=== PATIENT | female | born 1960 | race Caucasian/White ===

== ENCOUNTER → 2017-03-16 | Outpatient (CLI) | payer BC | END | disposition home or self-care (01) | LOC: LAB EV 09:48 | DX: L03.119 Cellulitis of unspecified part of limb (principal) | CPT/HCPCS: 87070; 87075; 87205 ==

== ENCOUNTER 2017-03-19 00:56 | Day surgery (SDC) | payer BC | END 2017-03-19 22:47 | disposition home or self-care (01) | LOC: WOUND 00:56 | PROC: 0HBLXZZ Excision of Left Lower Leg Skin, External Approach (ICD-10-PCS; principal; 2017-03-19) | DX: Z48.00 Encounter for change or removal of nonsurgical wound dressing (principal); I87.2 Venous insufficiency (chronic) (peripheral); I83.009 Varicose veins of unspecified lower extremity with ulcer of unspecified site; M10.00 Idiopathic gout, unspecified site; E66.9 Obesity, unspecified | CPT/HCPCS: G0463 ==

== ENCOUNTER 2017-03-24 01:04 | Day surgery (SDC) | payer BC | END 2017-03-24 15:52 | disposition home or self-care (01) | LOC: WOUND 01:04 | PROC: 2W1RX6Z Compression of Left Lower Leg using Pressure Dressing (ICD-10-PCS; principal; 2017-03-24) | DX: Z48.00 Encounter for change or removal of nonsurgical wound dressing (principal); I87.2 Venous insufficiency (chronic) (peripheral); I83.009 Varicose veins of unspecified lower extremity with ulcer of unspecified site; M10.00 Idiopathic gout, unspecified site ==

== ENCOUNTER 2017-03-30 00:24 | Day surgery (SDC) | payer BC | END 2017-03-30 23:30 | disposition home or self-care (01) | LOC: WOUND 00:24 | PROC: 2W1RX6Z Compression of Left Lower Leg using Pressure Dressing (ICD-10-PCS; principal; 2017-03-30) | DX: Z48.00 Encounter for change or removal of nonsurgical wound dressing (principal); I87.2 Venous insufficiency (chronic) (peripheral); M10.00 Idiopathic gout, unspecified site; I83.028 Varicose veins of left lower extremity with ulcer other part of lower leg; L97.829 Non-pressure chronic ulcer of other part of left lower leg with unspecified severity | CPT/HCPCS: G0463 ==

== ENCOUNTER 2017-04-06 00:07 | Day surgery (SDC) | payer BC | END 2017-04-06 14:24 | disposition home or self-care (01) | LOC: WOUND 00:07 | PROC: 2W1RX6Z Compression of Left Lower Leg using Pressure Dressing (ICD-10-PCS; principal; 2017-04-06) | DX: Z48.00 Encounter for change or removal of nonsurgical wound dressing (principal); I87.2 Venous insufficiency (chronic) (peripheral); I83.009 Varicose veins of unspecified lower extremity with ulcer of unspecified site; M10.00 Idiopathic gout, unspecified site | CPT/HCPCS: G0463 ==

== ENCOUNTER 2017-04-13 00:16 | Day surgery (SDC) | payer BC | END 2017-04-13 10:32 | disposition home or self-care (01) | LOC: WOUND 00:16 | PROC: 2W1RX6Z Compression of Left Lower Leg using Pressure Dressing (ICD-10-PCS; principal; 2017-04-13) | PROC: 0HBLXZZ Excision of Left Lower Leg Skin, External Approach (ICD-10-PCS; principal; 2017-04-13) | DX: I83.028 Varicose veins of left lower extremity with ulcer other part of lower leg (principal); L97.829 Non-pressure chronic ulcer of other part of left lower leg with unspecified severity; I87.2 Venous insufficiency (chronic) (peripheral) | CPT/HCPCS: G0463 ==

== ENCOUNTER 2017-04-15 09:42 | Day surgery (SDC) | payer BC | END 2017-04-15 22:38 | disposition home or self-care (01) | LOC: WOUND 09:42 | PROC: 2W1RX6Z Compression of Left Lower Leg using Pressure Dressing (ICD-10-PCS; principal; 2017-04-15) | DX: I83.028 Varicose veins of left lower extremity with ulcer other part of lower leg (principal); I87.2 Venous insufficiency (chronic) (peripheral); L97.829 Non-pressure chronic ulcer of other part of left lower leg with unspecified severity; M10.00 Idiopathic gout, unspecified site ==

== ENCOUNTER 2017-04-21 03:27 | Day surgery (SDC) | payer BC | END 2017-04-21 23:24 | disposition home or self-care (01) | LOC: WOUND 03:27 | PROC: 2W1RX6Z Compression of Left Lower Leg using Pressure Dressing (ICD-10-PCS; principal; 2017-04-21) | DX: I87.2 Venous insufficiency (chronic) (peripheral) (principal); I83.023 Varicose veins of left lower extremity with ulcer of ankle; L97.329 Non-pressure chronic ulcer of left ankle with unspecified severity; M10.00 Idiopathic gout, unspecified site | CPT/HCPCS: G0463 ==

== ENCOUNTER 2017-04-28 00:05 | Day surgery (SDC) | payer BC | END 2017-04-28 10:35 | disposition home or self-care (01) | LOC: WOUND 00:05 | PROC: 2W1RX6Z Compression of Left Lower Leg using Pressure Dressing (ICD-10-PCS; principal; 2017-04-28) | DX: I83.023 Varicose veins of left lower extremity with ulcer of ankle (principal); I83.012 Varicose veins of right lower extremity with ulcer of calf; L97.329 Non-pressure chronic ulcer of left ankle with unspecified severity; I87.2 Venous insufficiency (chronic) (peripheral); L97.219 Non-pressure chronic ulcer of right calf with unspecified severity; M10.00 Idiopathic gout, unspecified site | CPT/HCPCS: G0463 ==

== ENCOUNTER 2017-05-07 00:52 | Day surgery (SDC) | payer BC | END 2017-05-07 11:27 | disposition home or self-care (01) | LOC: WOUND 00:52 | DX: Z48.00 Encounter for change or removal of nonsurgical wound dressing (principal); I87.2 Venous insufficiency (chronic) (peripheral); I83.028 Varicose veins of left lower extremity with ulcer other part of lower leg; L97.829 Non-pressure chronic ulcer of other part of left lower leg with unspecified severity; Z96.659 Presence of unspecified artificial knee joint; Z96.649 Presence of unspecified artificial hip joint; M10.00 Idiopathic gout, unspecified site | CPT/HCPCS: G0463 ==

== ENCOUNTER 2019-03-10 05:47 | Emergency (ER) | payer BC ==
[~2019-03-10] VITALS: Ht 180.3 cm; Wt 110.2 kg
[2019-03-10] MEDS ORDERED: TRAZ50 (06:00)
[2019-03-10] MEDS ORDERED: ALPR.5CR PO (06:01)
== END 2019-03-10 06:40 | disposition home or self-care (01) ==
LOC: ER 05:47
DX: I83.023 Varicose veins of left lower extremity with ulcer of ankle (principal)
CPT/HCPCS: 90471; 90714; 99283-25

== ENCOUNTER → 2021-01-16 | Outpatient (CLI) | payer BC ==
[~2021-01-16] MED LIST: ALPR.5CR PO; TRAZ50
== END ==
LOC: LAB 11:50 → LAB SHORT 11:50
DX: R35.0 Frequency of micturition (principal)
CPT/HCPCS: 87086

== ENCOUNTER → 2021-01-17 | Outpatient (CLI) | payer BC ==
[2021-01-18 14:07] LABS: Stool Occult Bld Immuno 1 Negative (NEGATIVE)
== END | disposition home or self-care (01) ==
LOC: LAB SHORT 17:40
PROVIDERS: Family Medicine
DX: Z12.11 Encounter for screening for malignant neoplasm of colon (principal)
CPT/HCPCS: G0328

== ENCOUNTER → 2021-06-26 | Outpatient (CLI) | payer BC ==
[2021-06-27 15:11] LABS: HPV 16 Negative (Negative); HPV 18 Negative (Negative); HPV OTHER HR TYPES Negative (Negative)
== END | disposition home or self-care (01) ==
LOC: LAB 15:02 → LAB SHORT 15:02
PROVIDERS: Obstetrics & Gynecology
DX: Z01.419 Encounter for gynecological examination (general) (routine) without abnormal findings (principal)
CPT/HCPCS: 87624; G0123